=== PATIENT | male | born 1960 | race Caucasian/White ===

== ENCOUNTER 2019-08-03 09:07 | Emergency (ER) | payer OTHER, SELFPAY ==
[2019-08-03 09:16] VITALS: BP 170/100; PULSE 90; RESP 14; TEMP 37.1; O2SAT 98
--- NOTE | 2019-08-03 10:47 | ED.EAR ---
HPI - Ear Problem General Chief complaint: Ear Stated complaint: Pain in ear/ sore neck Time Seen by Provider: 08/03/19 09:08 Source: patient Mode of arrival: Ambulatory Limitations: no limitations History of Present Illness HPI Narrative: 58-year-old male nonsmoker with noncontributory medical history presents to the emergency department with a chief complaint of gradually worsening redness, pain, swelling of his left ear and skin overlying his gnosticist over the past few days. He denies systemic findings such as fever, chills nor nausea or vomiting. He does admit to increasing pain and some muffled sounds from his left ear. He states that sometimes the skin of his scalp becomes irritated with search improves any gets sores that he scratches and he thinks this started from 1 of those about lesions just above his left ear. He denies any injury. He denies swimming or any fluid in his ear but he thinks the redness and pain started in his ear and spread to the gnosticist. He denies any discharge MD Complaint: ear pain and decreased hearing Location: left ear Duration: constant Severity: mild Relieving factors: nothing Exacerbating factors: position of head and palpation Discharge from ear: no Treatment prior to arrival: oral analgesic Related Data Home Medications Medication Instructions Recorded Confirmed acetaminophen #0 07/06/17 diazepam [Valium] #0 07/06/17 gabapentin #0 07/06/17 Previous Rx's Medication Instructions Recorded ciprofloxacin HCl [Cipro] 500 mg PO BID #14 tab 08/03/19 ketorolac 10 mg PO Q6H PRN #14 tab 08/03/19 Allergies Allergy/AdvReac Type Severity Reaction Status Date / Time Penicillins [PENICILLINS] Allergy Unknown ANAPHYLAXIS Unverified 02/21/18 13:09 CHILD codeine [CODEINE] AdvReac Mild N/V Unverified 02/21/18 13:09 hydrocodone [HYDROCODONE] AdvReac Mild N/V Unverified 02/21/18 13:09 Review of Systems Constitutional Constitutional: Denies chills, Denies fatigue, Denies fever(s), Denies frequent falls, Denies lethargy and Denies weakness Eyes Eyes: Denies change in vision, Denies eye discharge, Denies irritation and Denies loss of vision ENT Ears, Nose, Mouth, and Throat: Denies change in voice, Denies dizziness, Reports otalgia, Reports facial pain, Denies neck pain, Denies sore throat and Denies throat swelling Cardiovascular Cardiovascular: Denies chest pain, Denies irregular heart rhythm, Denies lightheadedness, Denies palpitations, Denies dyspnea, Denies dyspnea on exertion and Denies orthopnea Respiratory Respiratory: Denies cough, Denies dyspnea, Denies dyspnea on exertion and Denies wheezing Gastrointestinal Gastrointestinal: Denies abdominal pain, Denies change in bowel habits, Denies diarrhea, Denies nausea and Denies vomiting Genitourinary Genitourinary: Denies hematuria, Denies flank pain, Denies urinary incontinence and Denies urinary urgency Musculoskeletal Musculoskeletal: Denies back pain, Denies muscle weakness, Denies neck pain, Denies numbness and Denies tingling Integumentary/Breasts Skin/Breast: Denies pruritus, Denies erythema, Denies rash and Denies wounds Neurologic Neurologic: Denies behavioral changes, Denies confusion, Denies dizziness, Denies frequent falls, Denies loss of vision, Denies numbness, Denies tingling and Denies weakness Psychiatric Psychiatric: Denies anxiety, Denies behavioral changes, Denies confusion, Denies depression, Denies homicidal ideation and Denies suicidal ideation Endocrine Endocrine: Denies fatigue, Denies flushing and Denies palpitations Hematologic/Lymphatic Hematologic/Lymphatic: Denies easy bruising Allergic/Immunologic Allergic/Immunologic: Denies urticaria, Denies throat swelling and Denies wheezing [facility] Social History (Updated 08/03/19 @ 10:47 by Johnnie Cam DO) Smoking Status: Never smoker Social History Smoking Status: Never smoker Exam Narrative Exam Narrative: GEN: AOx3 and in mild distress, rubbing his left gnosticist EYES: Pupils are equal, round, and reactive to light and accommodation. Extraoccular muscles are intact bilaterally. There is no subconjunctival hemorrhage or exudate. ENT: Mild swelling of Left external auditory canal, no drainage or exudate. TM clear, with normal cone of light and landmarks. No effusion. There is minimal erythema to pinna, but no swelling. No tenderness or bogginess of mastoid. Erythema, warmth and tenderness spreads anterior of ear almost to gnosticist. No induration, fluctuance, or drainage. CHEST: Lungs are clear to auscultation bilaterally and free of wheezes, rales, or rhonchi. Heart rate is regular rhythm, there are no murmurs, clicks, rubs, or gallops. There is no chest wall tenderness. ABD: Abdomen is soft and nontender. There is no guarding or rebound. Bowel sounds are normal in all 4 quadrants. There is no mass or organomegaly. EXT: Full painless ROM of all extremities with no loss of sensation or strength. SKIN: Warm, pink, and dry. No erythema or rash other than that which is noted above in the ENT section Initial Vital Signs Initial Vital Signs: Vital Signs Temperature 98.7 F 08/03/19 09:16 Pulse Rate 90 08/03/19 09:16 Respiratory Rate 14 08/03/19 09:16 Blood Pressure 170/100 H 08/03/19 09:16 Pulse Oximetry 98 08/03/19 09:16 Course Vital Signs Vital signs: Vital Signs - 8 hr 08/03/19 09:16 Temperature 98.7 F Pulse Rate 90 Respiratory Rate 14 Blood Pressure 170/100 H Pulse Oximetry 98 Medical Decision Making MDM Narrative Medical decision making narrative: Multiple etiologies for patient's symptoms considered including: [Otitis externa versus cellulitis versus mastoiditis versus other] Patient's symptoms improved or duration of stay with above-stated therapies. Findings and discharge diagnosis discussed with patient/family followed by verbalization of understanding Return precautions discussed with patient/family whom verbalize understanding. Discharge Plan Departure Patient Disposition: Home Clinical Impression: Otitis externa Qualifiers: Otitis externa type: diffuse Chronicity: acute Laterality: left Qualified Code(s): H60.312 - Diffuse otitis externa, left ear Discharge Date/Time: 08/03/19 09:43 Instructions: DI for Cellulitis -- Adult, DI for Otitis Externa Activity Restrictions/Additional Instructions: *You have been diagnosed with [acute otitis externa with cellulitis] *What to do: *Take medications as directed: Your prescriptions have been electronically transmitted to [facility] at your request *Follow up with your primary care provider in 2-3 days, call for an appointment. Let them know you were seen in the Emergency Department and that we ask that you be seen in follow up *Return to ER if you should have any new, worsening or concerning symptoms, such as [worsening pain, redness, swelling, fever or other bothersome symptoms ] Prescriptions: New ketorolac 10 mg tablet 10 mg PO Q6H PRN (Reason: pain) Qty: 14 RF: 0 ciprofloxacin HCl [Cipro] 500 mg tablet 500 mg PO BID Qty: 14 RF: 0 No Action gabapentin 100 MG capsule Qty: 0 RF: 0 acetaminophen 325 MG tablet Qty: 0 RF: 0 diazepam [Valium] 2 MG tablet Qty: 0 RF: 0
== END 2019-08-03 09:43 | disposition home or self-care (01) ==
LOC: ED 09:29
PROVIDERS: Emergency Provider Emergency Medicine
DX: H60.312 Diffuse otitis externa, left ear (principal)
CPT/HCPCS: 99282

== ENCOUNTER → 2022-06-06 08:51 | Outpatient (CLI) | payer OTHER, SELFPAY ==
[2022-06-06 11:13] LABS: COVID19 -Nasal RAPID Negative (Negative)
== END ==
PROVIDERS: Visit Provider Surgery
DX: Z20.822 Contact with and (suspected) exposure to COVID-19 (principal); Z01.812 Encounter for preprocedural laboratory examination
CPT/HCPCS: 87635; C9803

== ENCOUNTER 2022-06-07 09:03 | Day surgery (SDC) | payer OTHER, SELFPAY ==
[2022-06-07 09:21] VITALS: BP 192/94; PULSE 78; RESP 22; TEMP 36.9; O2SAT 97; BMI 32.5
--- NOTE | 2022-06-07 09:38 | PM.HP.1 ---
History of Present Illness History of Present Illness Date Patient Seen: 06/07/22 Time Patient Seen: 09:38 Chief complaint: SDC Narrative: The patient presents for colorectal screening. Previous colonoscopy 2011 normal. No personal history colon cancer. Family history is unknown adopted.. On further history denies any recent gastrointestinal symptoms. No nausea, vomiting, abdominal pain, loss of appetite, unexplained weight loss, change in bowel habits, diarrhea, constipation, melena, hematochezia, or bright red blood per rectum. Patient History Family & Social History Tobacco & Substance use: Smoking Status Never smoker Meds Home Medications and Allergies Home Medications Medication Instructions Recorded Confirmed Type sodium,potassium,mag sulfates 17.5 See Rx Instructions PO .COMPLEX 05/31/22 06/07/22 Rx gram-3.13 gram-1.6 gram oral soln #354 mL (Suprep Bowel Prep Kit) omeprazole 20 mg capsule,delayed 1 cap PO PRN PRN Reflux 06/06/22 06/07/22 History release Allergies Allergy/AdvReac Type Severity Reaction Status Date / Time Penicillins [PENICILLINS] Allergy Unknown ANAPHYLAXIS Unverified 02/21/18 13:09 CHILD codeine [CODEINE] AdvReac Mild N/V Unverified 02/21/18 13:09 hydrocodone [HYDROCODONE] AdvReac Mild N/V Unverified 02/21/18 13:09 Exam Narrative Exam Narrative: General adult male alert oriented no acute distress Chest nonlabored respirations Abdomen soft nontender nondistended Assessment & Plan Assessment & Plan narrative: The patient requires colorectal screening and colonoscopy is recommended. Technical details were discussed. Risks, benefits, alternatives explained. Risks including but not limited to myocardial infarction, aspiration, bleeding, pain, missed lesion, incomplete examination, need for further radiographic studies, colonic perforation, and need for major abdominal surgery were discussed. All questions were answered to their satisfaction, and they are in agreement with this plan. Time Spent With Patient Critical Care time: I spent a total of [] minutes of critical care time on this patient's care today; this time is exclusive of procedural time.
[2022-06-07] MEDS: LACTATED RINGERS 1,000 ML 200 ML IV (09:40)
--- NOTE | 2022-06-07 09:40 | PM.OP.COLON ---
Operative Date/Time/Diagnoses Date of procedure: 06/07/22 Time of procedure: 09:40 Pre-op diagnosis: Screening colonoscopy Post-op diagnosis: same Procedure & Clinicians Study performed: Colonoscopy Same procedure as scheduled: Yes Indications: Screening colonoscopy Surgeon: Kwan Bazzi Procedure Notes Procedure in detail: Medications: Conscious sedation using *mg IV midazolam and *mcg IV of fentanyl The history and physical was performed/updated and the patient is ASA class is *. The procedure was discussed in detail with the patient. Potential risks complications including infection, bleeding, missed diagnosis, perforation, need for surgery, and were explained. Their questions were answered and informed consent was obtained. Patient was brought to the procedure room and placed standard monitoring equipment. The patient's vital signs were monitored continuously throughout the entire procedure. Prior to starting time-out was performed. The patient was placed in the left lateral recumbent position. Procedural sedation was administered. Examination began with a thorough inspection of the perianal area there was no evidence of fissures, fistulae, external hemorrhoids or cutaneous malignancy. The colonoscopy scope was then placed into the anal canal and was advanced to the cecum, which was identified by the ileocecal valve, the appendiceal orifice and the confluence of the taenia. The scope was then slowly withdrawn examining colon thoroughly in all directions, irrigating it of any residual stool. FINDINGS 1. No masses or polyps 2. Sigmoid colon-mild diverticulosis 3. Internal hemorrhoids The patient tolerated the procedure well. They will be discharged once criteria are met. The prep was of good/excellent quality. The withdrawl time was 9 minutes. The sedation time was 15 minutes. Specimen(s): none sent Complications: none Impression: Normal colonoscopy Post-procedure Recommendations: Colonoscopy in 10 years and High fiber diet Disposition: same day surgery
[2022-06-07] MEDS: ONDANSETRON 4 MG/2 ML INJ IV (09:46)
[2022-06-07] MEDS: MIDAZOLAM 5 MG/5 ML VIAL 6 MG IV (09:55)
[2022-06-07] MEDS: fentaNYL 250 MCG/5 ML INJ 150 MCG IV (09:55)
[2022-06-07 10:10] VITALS: BP 152/76; PULSE 77; RESP 19; TEMP 37.2; O2SAT 94
[2022-06-07 10:15] VITALS: BP 138/85; PULSE 89; RESP 14; O2SAT 95
[2022-06-07 10:20] VITALS: BP 142/83; PULSE 74; RESP 16; O2SAT 95
[2022-06-07 10:27] VITALS: BP 144/80; PULSE 68; RESP 16; O2SAT 96
--- NOTE | 2022-06-07 10:30 | SUR.PHASEII ---
Handoff to SALMA Chavis for phase 2 nursing.
--- NOTE | 2022-06-07 10:51 | SUR.PHASEII ---
Addendum entered by Risa Woods R.N. 06/07/22 10:55: denies nausea. tolerating water. glass to go given to patient . Original Note: 06/07/22 1030-- assumed care of patient . per report from [facility], patient ready to discharge-vital signs up to date, given copies to patient. iv saline lock removed. ride called while patient dressings. 1038-assisted with shoes tying. patient encouraged to go slow in moving to prevent dizziness. 1040-to car by w/chair with Rn (Luis). patient wearing glasses, has all belongings and has instruction envelope in hand.
== END 2022-06-07 10:40 | disposition home or self-care (01) ==
PROVIDERS: Referring Provider Surgery; Visit Provider Surgery
PROC: 0DJD8ZZ Inspection of Lower Intestinal Tract, Via Natural or Artificial Opening Endoscopic (ICD-10-PCS; CPT 45378; principal; 2022-06-07 10:15)
DX: Z12.11 Encounter for screening for malignant neoplasm of colon (principal); K57.30 Diverticulosis of large intestine without perforation or abscess without bleeding; K64.8 Other hemorrhoids
CPT/HCPCS: 45378; 99152; J2250; J2405; J3010

== ENCOUNTER 2022-07-25 18:23 | Emergency (ER) | payer OTHER, SELFPAY ==
[2022-07-25 18:46] VITALS: BP 142/92; PULSE 83; RESP 22; TEMP 37; O2SAT 98; BMI 32.2
--- NOTE | 2022-07-25 18:54 | DI.RAD.S_ITS ---
PROCEDURE: XR LUMBAR SPINE 2-3V INDICATIONS: fall from truck bed TECHNIQUE: Three views of the lumbar spine were acquired. COMPARISON: None. FINDINGS: Bones: Five [id number] vertebrae are present. There is slight scalloping of the L1 superior endplate but no definite fracture. There are mild endplate degenerative changes in the lumbar spine. Normal vertebral body alignment and disc spacing. No suspicious bony lesions. Bilateral hip arthroplasty changes partially seen. Soft tissues: Overlying bowel gas pattern is normal. No suspicious soft tissue calcifications. IMPRESSION: 1. No acute lumbar spine fracture. Dictated by: Angeles Powell M.D. on 07/25/2022 at 19:56 Approved by: Angeles Powell M.D. on 07/25/2022 at 19:57
[2022-07-25] MEDS: KETOROLAC 30 MG/ML VIAL IM (18:58)
--- NOTE | 2022-07-25 21:37 | ED_ITS ---
HPI - Back Pain/Injury General Chief Complaint: Back Pain/Injury Stated Complaint: Fell of pickup and landed on back/butt Time Seen by Provider: 07/25/22 21:27 Source: patient Mode of arrival: Wheelchair History of Present Illness HPI Narrative: Patient is a 61-year-old male who is here for evaluation of injuries he sustained to his mid to lower back when he fell on the back of a pickup truck. He states he was trying to unload items from the back of the pickup. He is unsure exactly what happened but he thinks he stepped wrong and fell onto the back of the truck. Approximately 4 ft. Unsure if he landed on his bottom and then hit his back or landed directly on his back. He did not hit his head. No loss of consciousness. Has been ambulatory since the event but has had fairly significant lower back pain. He did sit in a chair at home for a period of time when his symptoms started to worsen. He has no hip pain. No lower extremity pain. No upper extremity pain. Related Data Home Medications Medication Instructions Recorded Confirmed omeprazole 20 mg capsule,delayed 1 cap PO PRN PRN Reflux 06/06/22 06/07/22 release Previous Rx's Medication Instructions Recorded hydromorphone 2 mg tablet 2 mg PO Q6H PRN pain #10 tabs 07/26/22 (Dilaudid) ondansetron 4 mg disintegrating 4 mg PO Q6H PRN nausea and 07/26/22 tablet vomiting #10 tabs Allergies Allergy/AdvReac Type Severity Reaction Status Date / Time Penicillins [PENICILLINS] Allergy Unknown ANAPHYLAXIS Verified 07/25/22 18:46 CHILD codeine [CODEINE] AdvReac Mild N/V Verified 07/25/22 18:46 hydrocodone [HYDROCODONE] AdvReac Mild N/V Verified 07/25/22 18:46 Review of Systems Review of Systems ROS Unobtainable: All systems reviewed & are unremarkable except as noted in HPI and below Patient History Social History household members: spouse Smoking Status: Never smoker Smoking Status: Never smoker alcohol intake frequency: a few times a month Substance Use Type: does not use Exam Initial Vital Signs Initial Vital Signs: Vital Signs Temperature 98.6 F 07/25/22 18:46 Pulse Rate 83 07/25/22 18:46 Respiratory Rate 22 07/25/22 18:46 Blood Pressure 142/92 H 07/25/22 18:46 Pulse Oximetry 98 07/25/22 18:46 Oxygen Delivery Method 07/25/22 18:46 Const General: cooperative and No ill appearing HENMT Head: normal to inspection and normocephalic Resp Effort & Inspection: normal respiratory effort Auscultation: clear to auscultation bilaterally Cardio Rate: regular rate Rhythm: regular rhythm GI Inspection: normal to inspection Back/Spine/Pelvis Cervical Spine: No cervical muscular tenderness and No cervical spinal tenderness Thoracic/Lumbar Spine: pain with thoraco-lumbar ROM, paraspinal tenderness and lumbar spinal tenderness Skin Other: Bruising noted midline over the upper lumbar region where he has significant discomfort. Neuro General: patient alert, patient awake, patient oriented x3 and moves all extremities Speech: speech normal Sensory Exam: no sensory deficits noted Extrem General: normal to inspection and capillary refill normal Other: No gross deformities noted. Does move all 4 extremities. Psych Appearance: grossly normal and well kempt Course Orders Ordered: ED Orders 07/25/22 21:38 CT lumbar spine wo con Stat CT thoracic spine wo con Stat Discontinued Medications Hydromorphone HCl (Hydromorphone 1 Mg Inj) 1 mg IV NOW ONE Stop: 07/25/22 21:38 Last Admin: 07/25/22 22:06 Dose: 1 mg Documented By: ROSAMARIA Ketorolac Tromethamine (Ketorolac 30 Mg/Ml Vial) 30 mg IM NOW ONE Stop: 07/25/22 18:54 Last Admin: 07/25/22 18:58 Dose: 30 mg Documented By: ALIE Ondansetron HCl (Ondansetron 4 Mg Odt) 4 mg SL NOW ONE Stop: 07/25/22 21:38 Last Admin: 07/25/22 22:05 Dose: 4 mg Documented By: ROSAMARIA Vital Signs Vital signs: Vital Signs - 8 hr 07/25/22 22:11 07/25/22 22:12 07/25/22 22:12 Pulse Rate 84 Blood Pressure 197/108 H Pulse Oximetry 99 98 Oxygen Delivery Method Room Air 07/25/22 22:33 07/25/22 23:00 07/25/22 23:30 Pulse Rate 69 66 65 Blood Pressure Pulse Oximetry 99 97 97 Oxygen Delivery Method 07/26/22 00:00 07/26/22 00:11 07/26/22 00:11 Pulse Rate 70 71 Blood Pressure 166/93 H Pulse Oximetry 98 97 Oxygen Delivery Method MDM - Back Pain/Injury Imaging Data Lumbar spine x-ray: Radiologist's Impression: [address] [address] XRay Report Signed Patient: Luis Villagomez MR#: [id number] : 1960 Acct:[id number] Age/Sex: 61 / M Date of Service: 07/25/22 Loc: ED Accession Number: [id number] ?? Procedure: XR lumbar spine 2-3V Ordering Provider: Jules Lyons D.O. PROCEDURE:? XR LUMBAR SPINE 2-3V ? INDICATIONS:? fall from truck bed ? TECHNIQUE:? Three views of the lumbar spine were acquired.? ? COMPARISON:? None. ? FINDINGS:? ? Bones:? Five hml-coy-vwdfrgn vertebrae are present.? There is slight scalloping of the L1 superior endplate but no definite fracture.? There are mild endplate degenerative changes in the lumbar spine.? Normal vertebral body alignment and disc spacing.? No doni picious bony lesions.? Bilateral hip arthroplasty changes partially seen.? ? Soft tissues:? Overlying bowel gas pattern is normal.? No suspicious soft tissue calcifications.? ? ? IMPRESSION:? ? 1. No acute lumbar spine fracture.? ? ? Dictated by: Angeles Powell M.D. on 07/25/2022 at 19:56 ? ? Approved by: Angeles Powell M.D. on 07/25/2022 at 19:57? Thoracic spine CT: Radiologist's Impression: [address] [address] [address] Scan Report Signed Patient: Luis Villagomez MR#: [id number] : 1960 Acct:[id number] Age/Sex: 61 / M Date of Service: 07/25/22 Loc: ED Accession Number: [id number] ?? Procedure: CT thoracic spine wo con Ordering Provider: Jules Lyons D.O. PROCEDURE:? CT THORACIC SPINE WO CON ? INDICATIONS:? T/L spine midline pain after fall ? TECHNIQUE:? Noncontrast 3 mm thick sections acquired through the region of interest in the thoracic spine.? Sagittal and coronal reformats were then constructed.? For radiation dose reduction, the following was used:? automated exposure control.? ? COMPARISON:? None. ? FINDINGS:? Image quality:? Excellent.? ? Bones:? There is normal overall bony alignment.? No acute vertebral body compression fractures.? No suspicious sclerotic or lytic bony lesions.? Central spinal canal is of normal overall caliber.? ? Soft tissues:? No paravertebral masses or hematomas.? Visualized posteromedial lungs demonstrate mild dependent atelectasis.? No definite pulmonary contusions or lacerations within the visualized lungs.? No definite pneumothorax or pleural effusions. ? IMPRESSION:? ? 1. No evidence of fracture or subluxation in the thoracic spine. ? ? Dictated by: Patrick Patten M.D. on 07/25/2022 at 23:25 ? ? Approved by: Patrick Patten M.D. on 07/25/2022 at 23:32?? Lumbar spine CT: Radiologist's Impression: [place] [address] CT Scan Report Signed Patient: Luis Villagomez MR#: [id number] : 1960 Acct:[id number] Age/Sex: 61 / M Date of Service: 07/25/22 Loc: ED Accession Number: [id number] ?? Procedure: CT lumbar spine wo con Ordering Provider: Jules Lyons D.O. PROCEDURE:? CT LUMBAR SPINE WO CON ? INDICATIONS:? T/L spine midline pain after fall ? TECHNIQUE:? Noncontrast 3 mm thick sections acquired from the T12 level to the sacrum.? Sagittal and coronal reformats were constructed.? For radiation dose reduction, the following was used:? automated exposure control.? ? COMPARISON:? [facility], CR, XR LUMBAR SPINE 2-3V, 07/25/2022, 19:03.? [facility], CT, CT THORACIC SPINE WO CON, 07/25/2022, 21:56. ? FINDINGS:? Image quality:? There is metallic streak artifact from patient's bilateral hip prostheses.? ? Bones:? There is preserved bony alignment.? No acute vertebral body compression fractures.? There is minimal superior endplate scalloping of the L1 vertebral body.? No suspicious lytic or blastic bony lesions.? No pars defects.? There is mild facet arthropathy in the lower lumbar spine.? ? Soft tissues:? No retroperitoneal masses or hematomas.? Visualized aorta is normal in caliber.? There are multiple small clustered nonobstructing stones within the kidneys bilaterally, right greater than left.? No hydronephrosis. ? ? IMPRESSION:? ? 1. No acute fracture or subluxation. ? 2. Bilateral nephrolithiasis without evidence of hydronephrosis. ? ? Dictated by: Patrick Patten M.D. on 07/25/2022 at 23:32 ? ? Approved by: Patrick Patten M.D. on 07/25/2022 at 23:38? MDM Narrative Medical decision making narrative: The lumbar spine x-ray was negative however he did have fairly significant midline discomfort to palpation at the thoracolumbar junction with bruising over the area. The subsequent CT scans did not show any compression fractures. This was ordered given the mechanism of his injury as he very well could have had compression fractures or other fractures. He reports no extremity injuries. Patient has had significant nausea in the past with opioid pain medication however he did tolerate the Dilaudid and Zofran without issue. He reported significant improvement of his discomfort with this. Sent home with symptom treatment. He was given strict return precautions. He expressed understanding and agreement. Discharge Plan Departure Patient Disposition: Home Clinical Impression: Lumbar contusion Instructions: DI for Low Back Pain Activity Restrictions/Additional Instructions: The CT scans in the x-rays do not show any fractures. Your activities are only limited by your discomfort. Contact your primary doctor for follow-up. Return to the emergency department for any new or worsening symptoms. Prescriptions: New ondansetron 4 mg tablet,disintegrating 4 mg PO Q6H PRN (Reason: nausea and vomiting) Qty: 10 0RF hydromorphone [Dilaudid] 2 mg tablet 2 mg PO Q6H PRN (Reason: pain) Qty: 10 0RF No Action omeprazole 20 mg capsule,delayed release(DR/EC) 1 cap PO PRN PRN (Reason: Reflux) Referrals: ProviderMaribeth [Primary Care Provider] - Visit Report Forms: Patient Portal/API
--- NOTE | 2022-07-25 21:38 | DI.CT.S_ITS ---
PROCEDURE: CT THORACIC SPINE WO CON INDICATIONS: T/L spine midline pain after fall TECHNIQUE: Noncontrast 3 mm thick sections acquired through the region of interest in the thoracic spine. Sagittal and coronal reformats were then constructed. For radiation dose reduction, the following was used: automated exposure control. COMPARISON: None. FINDINGS: Image quality: Excellent. Bones: There is normal overall bony alignment. No acute vertebral body compression fractures. No suspicious sclerotic or lytic bony lesions. Central spinal canal is of normal overall caliber. Soft tissues: No paravertebral masses or hematomas. Visualized posteromedial lungs demonstrate mild dependent atelectasis. No definite pulmonary contusions or lacerations within the visualized lungs. No definite pneumothorax or pleural effusions. IMPRESSION: 1. No evidence of fracture or subluxation in the thoracic spine. Dictated by: Patrick Patten M.D. on 07/25/2022 at 23:25 Approved by: Patrick Patten M.D. on 07/25/2022 at 23:32
--- NOTE | 2022-07-25 21:38 | DI.CT.S_ITS ---
PROCEDURE: CT LUMBAR SPINE WO CON INDICATIONS: T/L spine midline pain after fall TECHNIQUE: Noncontrast 3 mm thick sections acquired from the T12 level to the sacrum. Sagittal and coronal reformats were constructed. For radiation dose reduction, the following was used: automated exposure control. COMPARISON: [facility], CR, XR LUMBAR SPINE 2-3V, 07/25/2022, 19:03. [facility], CT, CT THORACIC SPINE WO CON, 07/25/2022, 21:56. FINDINGS: Image quality: There is metallic streak artifact from patient's bilateral hip prostheses. Bones: There is preserved bony alignment. No acute vertebral body compression fractures. There is minimal superior endplate scalloping of the L1 vertebral body. No suspicious lytic or blastic bony lesions. No pars defects. There is mild facet arthropathy in the lower lumbar spine. Soft tissues: No retroperitoneal masses or hematomas. Visualized aorta is normal in caliber. There are multiple small clustered nonobstructing stones within the kidneys bilaterally, right greater than left. No hydronephrosis. IMPRESSION: 1. No acute fracture or subluxation. 2. Bilateral nephrolithiasis without evidence of hydronephrosis. Dictated by: Patrick Patten M.D. on 07/25/2022 at 23:32 Approved by: Patrick Patten M.D. on 07/25/2022 at 23:38
[2022-07-25] MEDS: ONDANSETRON 4 MG ODT SL (22:05)
[2022-07-25] MEDS: HYDROMORPHONE 1 MG INJ IV (22:06)
[2022-07-25 22:11] VITALS: O2SAT 99
[2022-07-25 22:12] VITALS: BP 197/108; PULSE 84; O2SAT 98
[2022-07-25 22:33] VITALS: PULSE 69; O2SAT 99
[2022-07-25 23:00] VITALS: PULSE 66; O2SAT 97
[2022-07-25 23:30] VITALS: PULSE 65; O2SAT 97
[2022-07-26] VITALS: PULSE 70; O2SAT 98
[2022-07-26 00:11] VITALS: BP 166/93; PULSE 71; O2SAT 97
== END 2022-07-26 00:18 | disposition home or self-care (01) ==
PROVIDERS: Emergency Provider Emergency Medicine
DX: S30.0XXA Contusion of lower back and pelvis, initial encounter (principal); W19.XXXA Unspecified fall, initial encounter
CPT/HCPCS: 72100; 72128; 72131; 96372; 96374; 99284; J1170; J1885

== ENCOUNTER 2023-06-29 06:21 | Day surgery (SDC) | payer OTHER, SELFPAY ==
[2023-06-23 10:03] VITALS: BMI 33.4
[2023-06-29] MEDS: ACETAMINOPHEN 325 MG TABLET 975 MG PO (06:37)
[2023-06-29] MEDS: SCOPOLAMINE 1 PATCH TOP (06:38)
[2023-06-29 06:40] VITALS: BP 185/108; PULSE 80; RESP 16; TEMP 36.2; O2SAT 94; BMI 33.4
--- NOTE | 2023-06-29 07:36 | PM.PREOP ---
Pre-operative Note Interval Note History & Physical reviewed/Exam performed by Physician: Yes Changes to H&P: No
[2023-06-29] MEDS: CEFAZOLIN 2 GM/100 ML PREMIX 100 ML IV (08:00)
--- NOTE | 2023-06-29 08:37 | SUR.OPER ---
Beach chair with Gracie/Rancho shoulder positioner. Lower body on padded OR bed. Head in foam padded head cradle, secured with straps. Non-operative arm secured <90 degrees abduction. Pillow under knees. Safety belt at thigh. Cloth tape over blanket over lower legs.
[2023-06-29] MEDS: SODIUM CHLORIDE IRRIG SOLUTION 6,000 ML, EPINEPHrine 2 MG IRR (08:55)
[2023-06-29] MEDS: LIDOCAINE 1% W/EPI 20 ML INJ (09:34)
--- NOTE | 2023-06-29 09:40 | PM.OP.1 ---
Operative Date/Time/Diagnoses Date of procedure: 06/29/23 Time of procedure: 08:00 Pre-op diagnosis: Right rotator cuff tear Post-op diagnosis: same Procedure & Clinicians Procedure: Right shoulder arthroscopic extensive debridement with subacromial decompression and rotator cuff repair Same procedure as scheduled: Yes Indications: Rotator cuff tear Surgeon: Mitchell Gross Dry Heat Cabinet Attendant: Génesis Gutierrez Anesthesia Type: General and Peripheral nerve block Operative Notes Findings: Full-thickness tear of the supraspinatus extending into the infraspinatus. Some articular sided partial tearing to the subscapularis. Partial tearing to the biceps tendons. Degenerative changes throughout the labrum. Significant bursitis in the subacromial and subdeltoid space. Mild arthritic changes to the glenohumeral joint with no sign full-thickness cartilage loss. Impingement lesion space. No sign bodies. Closure Type: primary Applied: implant(s) (Arthrex speed bridge) Procedure in detail: On date of service, Patient was met in the holding area. The operative site was signed and witnessed by the OR staff. The surgeries once again discussed with the patient and any remaining questions they had were answered fully. Patient was taken back to the operating theater and placed on the operating table in a supine position. Great care was taken to ensure that all bony prominences were properly padded. Patient was then placed into the beach chair position. The head and neck were properly positioned and secured. A timeout was performed verifying patient's name, procedure, and the operative site. The upper extremity was then prepped and draped in the normal sterile fashion. Previously, the bony anatomy and portal sites were marked out as well as injected with Marcaine with epinephrine. An 11 blade was used to make an incision in the posterior aspect of the shoulder. The camera was placed, and a diagnostic shoulder scope was performed. Findings listed above. Next under direct visualization, a anterior portal was made. Shaver was brought in and extensive debridement of the degenerative changes to the labrum was performed. Shaver was used to debride the partial tearing to the rotator cuff as well as the partial tearing to the biceps tendon.. Some debridement of some degenerative changes of the proximal biceps was performed as well. Next the camera was placed into the subacromial space. A lateral portal was obtained under direct visualization. A combination of the shaver and vapor wand, a debridement of the inflamed tissue as well as inflamed bursa was performed. The lateral gutter was also cleaned out. There was a significant amount of bursitis and synovitis in both the subacromial and subdeltoid space. After this was all cleaned out, This gave us good visualization of the bursal aspect of the rotator cuff as well as the acromial arch. There was an obvious impingement lesion in the acromial arch. Next we turned our attention to the subacromial decompression. Next, a mechanical rasp was then used to do a subacromial decompression. This allowed us to convert the acromion to a type I acromial. This also allowed us to shave down the bony lesion in the acromial space. The rasp was placed into the lateral portal as well as the anterior portal in order to do a complete subacromial decompression. We next turned our attention to the distal clavicle. Using the shaver in the vapor wand we were able to clean out all the soft tissue around the distal clavicle as well as into the a.c. joint. This gave us good visualization of the arthritic changes to the distal clavicle as well as good of the a.c. joint allowing us to assess our distal clavicle excision. Of the inferior osteophytes coming off the distal clavicle. Using the mechanical rasp in the anterior portal, we were able to remove the inferior osteophytes as well as do a distal clavicle excision. The camera was then placed into the anterior portal which gave us a direct visualization of the a.c. joint allowing us to assess the distal clavicle excision. We then turned our attention to the rotator cuff tear. Patient had a very large tear involving the rotator cuff. The entire supraspinatus and part of the infraspinatus was torn from the greater tuberosity and retracted a few cm. Due to the acute nature of the tear the cuff was still very mobile and had not scarred in at all. We could very easily pull it back to the rotator cuff footprint. Using the bur, the rotator cuff footprint was decorticated down to bleeding bone. Next, 2 medial anchors were placed. One anteriorly 1 posteriorly. Each anchor had 2 strands of fiber tape for a speed bridge repair. The sutures from the posterior anchor were passed through the posterior aspect of the infraspinatus. Then the sutures from the anterior anchor was passed through the anterior aspect of the supraspinatus. When pulling on the sutures we were able to reduce both the supraspinatus and infraspinatus to their respective footprints. Next, a punch was used to make a hole in the bone for the 2 medial anchors. This was done also anteriorly and posteriorly. A single suture from the anterior medial anchor and a single suture from the posterior medial anchor were placed into the anterior lateral anchor allowing us to tenodesis the rotator cuff across the rotator cuff footprint for the supraspinatus. This was then repeated with the remaining suture both anteriorly and posteriorly. And these 2 sutures were placed into the posterior medial anchor and tenodesis posteriorly providing a crisscross pattern providing a secure repair of both the supraspinatus and infraspinatus. Before the row repair most of the humeral head was exposed. After the repair there was good coverage of the entire humeral head and a very secure repair of the rotator cuff. Shoulder was taken through range of motion and there was no sign of any other tearing. No sign of any impingement lesions. Camera and cannulas were removed. Portal sites were closed. Patient's shoulder was cleaned, dried, and dressed. Patient was extubated and taken to the PACU in stable condition. Complications: none Post-operative Condition: stable Disposition: PACU Plan for aftercare: Patient will follow our postoperative protocol for rotator cuff repair
[2023-06-29] MEDS: BUPIVACAINE 0.5% W/ EPI (PF) 30 ML VIAL INJ (09:41)
[2023-06-29 09:51] VITALS: BP 109/66; PULSE 81; RESP 18; TEMP 36.6; O2SAT 92
[2023-06-29 09:56] VITALS: BP 123/72; PULSE 92; RESP 17; O2SAT 93
[2023-06-29 10:01] VITALS: BP 134/74; PULSE 93; RESP 13; O2SAT 92
[2023-06-29 10:15] VITALS: BP 136/86; PULSE 90; RESP 16; TEMP 36.6; O2SAT 93
== END 2023-06-29 10:52 | disposition home or self-care (01) ==
PROVIDERS: Referring Provider Orthopaedic Surgery; Visit Provider Orthopaedic Surgery
PROC: (CPT 29805; principal; 2023-06-29 07:45)
PROC: (CPT 29827; 2023-06-29 07:45)
DX: S46.011A Strain of muscle(s) and tendon(s) of the rotator cuff of right shoulder, initial encounter (principal); S46.211A Strain of muscle, fascia and tendon of other parts of biceps, right arm, initial encounter; G89.18 Other acute postprocedural pain; M75.51 Bursitis of right shoulder; M65.811 Other synovitis and tenosynovitis, right shoulder; M25.811 Other specified joint disorders, right shoulder; M25.711 Osteophyte, right shoulder; Y93.B1 Activity, exercise machines primarily for muscle strengthening
CPT/HCPCS: 29827; 29826; 29823; 29824; 64415; J0171; J0690; J1100; J2250; J2405; J2704; J3010

== ENCOUNTER 2023-09-20 19:16 | Emergency (ER) | payer MEDICARE, OTHER, SELFPAY ==
[2023-09-20 19:21] VITALS: BP 168/111; PULSE 96; RESP 20; TEMP 37; O2SAT 96; BMI 32.6
[2023-09-20 20:32] VITALS: PULSE 91; O2SAT 97
[2023-09-20 21:00] VITALS: BP 166/92; PULSE 91; O2SAT 97
--- NOTE | 2023-09-20 21:11 | ED_ITS ---
HPI - Male Genitourinary General Chief complaint: Abdominal Pain Stated complaint: incarcerated hernia in groin sent by [facility] Time Seen by Provider: 09/20/23 20:31 Source: patient Mode of arrival: Ambulatory History of Present Illness HPI Narrative: Patient is a 63-year-old male with prior inguinal hernias and repair presenting today with right upper thigh pain between his scrotum and his side. He reports pain and spasming going down his leg. He denies any injury. He denies any fever or chills. He went to the walk-in clinic today concerned might be an incarcerated hernia. He is got no swelling in his groin he said previously when ever he is had his hernias he is had swelling and lumps he does not have any now. He adamantly denies any testicular pain. No fever or chills. Related Data Home Medications Medication Instructions Recorded Confirmed omeprazole 20 mg capsule,delayed 1 cap PO PRN PRN Reflux 06/06/22 06/29/23 release aspirin 81 mg capsule 81 mg PO DAILY 06/23/23 06/29/23 Previous Rx's Medication Instructions Recorded hydromorphone 4 mg tablet 4 mg PO Q4-6H PRN pain #60 tabs 06/29/23 (Dilaudid) hydroxyzine pamoate 25 mg capsule 25 mg PO TID-QID PRN spasms #60 06/29/23 (Vistaril) caps Allergies Allergy/AdvReac Type Severity Reaction Status Date / Time Penicillins [PENICILLINS] Allergy Unknown ANAPHYLAXIS Verified 06/29/23 06:35 CHILD codeine [CODEINE] AdvReac Mild N/V Verified 06/29/23 06:35 hydrocodone [HYDROCODONE] AdvReac Mild N/V Verified 06/29/23 06:35 Review of Systems Review of Systems ROS Unobtainable: All systems reviewed & are unremarkable except as noted in HPI and below Patient History Medical History (Updated 09/20/23 @ 21:37 by Nu Mcdowell DO) Hearing impaired Enlarged prostate Arthritis GERD (gastroesophageal reflux disease) History of DVT (deep vein thrombosis) (2006) HLD (hyperlipidemia) Rupture of right proximal biceps tendon Traumatic tear of right rotator cuff Anesthesia complication DJD (degenerative joint disease) Surgical History (Updated 06/23/23 @ 10:11 by Pina Michael RN) Hx of right inguinal hernia repair (10/01/15) History of total left hip replacement History of total right hip replacement Hx of colonoscopy Hx of right inguinal hernia repair (07/06/17) Social History household members: spouse Smoking Status: Never smoker alcohol intake: current Smoking Status: Never smoker alcohol intake frequency: a few times a month Substance Use Type: does not use Exam Initial Vital Signs Initial Vital Signs: Vital Signs Temperature 98.6 F 09/20/23 19:21 Pulse Rate 96 H 09/20/23 19:21 Respiratory Rate 20 09/20/23 19:21 Blood Pressure 168/111 H 09/20/23 19:21 Pulse Oximetry 96 09/20/23 19:21 Oxygen Delivery Method Room Air 09/20/23 19:21 GENERAL: Well-appearing, well-nourished and in no acute distress. CARDIOVASCULAR: peripheral pulses in tact, cap refill <2 sec RESPIRATORY: No respiratory distress, speaks in full sentences without difficulty ABDOMEN: Soft, nontender, no guarding or rebound : Normal male genitalia right testicle nontender non erythematous not swollen no inguinal hernia appreciated. Possibly mild yeast infection and thigh. No other obvious rashes EXTREMITIES: Normal range of motion, no clubbing or edema. Neurovascularly intact NEUROLOGICAL: Cranial nerves II through XII grossly intact. Normal gait and speech. SKIN: Warm, dry, no petechiae, no rashes or lesions. Course Orders Ordered: ED Orders 09/20/23 21:18 US scrotum Stat Vital Signs Vital signs: Vital Signs - 8 hr 09/20/23 19:21 09/20/23 20:32 09/20/23 21:00 Temperature 98.6 F Pulse Rate 96 H 91 H 91 H Respiratory Rate 20 Blood Pressure 168/111 H Pulse Oximetry 96 97 97 Oxygen Delivery Method Room Air Room Air Room Air 09/20/23 21:00 09/20/23 21:30 09/20/23 21:30 Temperature 97.9 F Pulse Rate 86 Respiratory Rate Blood Pressure 166/92 H 175/94 H Pulse Oximetry 97 Oxygen Delivery Method Room Air MDM - Male Genitourinary Imaging Data US scrotum: Radiologist's Impression: PROCEDURE: US SCROTUM INDICATIONS: RIGHT TESTICULAR PAIN TECHNIQUE: Real-time scanning was performed of the scrotum and testicles, with image documentation. Color and pulse Doppler interrogation was performed of both testicles. COMPARISON: None. FINDINGS: Right: Testicle is normal in size at 5.4 x 2.2 x 3.3 cm, and homogenous in echotexture. Epididymis is normal in overall size and morphology. No hydrocele or varicoceles. Overlying scrotal skin is normal in thickness. Left: Testicle is normal in size at 5.0 x 2.7 x 3.5 cm, and homogeneous in echotexture. Epididymis is normal in overall size and morphology. No hydrocele or varicoceles. Overlying scrotal skin is normal in thickness. Doppler: Color and pulse Doppler demonstrate normal and symmetric arterial flow in both testicles. IMPRESSION: No testicular torsion. Unremarkable ultrasound examination of scrotum. Dictated by: Manuel Lee M.D. on 09/20/2023 at 2 MDM Narrative Medical decision making narrative: Patient well-appearing 63-year-old male with prior history of multiple inguinal hernias and repair presenting today with right leg pain. Walk-in clinic apparently was concern for hernia. On my exam there is no obvious hernia he has no testicular pain. Really complaining of medial thigh pain which like spasm and groin strain although he does not really remember an injury. Recommended supportive care only. And over the counter fungal medication. I see no need for blood work imaging or other workup. Patient feels comfortable he is offered pain medication but declines does not want any. He just wanted to make sure he did not have a hernia. Discharge Plan Departure Patient Disposition: Home Clinical Impression: Groin strain Instructions: Groin Strain, DI for Jock Itch Activity Restrictions/Additional Instructions: *You have been diagnosed with probable groin strain *What to do: At this time there is no evidence of any sort of hernia or testicular infection. I do think it is most likely a pulled or strained muscle. You can try Tylenol ibuprofen if needed. If you feel like you need [id number]-[id number] antifungal medication you can try that as well but it does not look too bad. *Continue to take medications as directed *Follow up with your primary care provider in 2-3 days or call [phone] *Return to ER if you should have increasing pain weakness numbness tingling or any new, worsening or concerning symptoms Prescriptions: No Action omeprazole 20 mg capsule,delayed release(DR/EC) 1 cap PO PRN PRN (Reason: Reflux) aspirin 81 mg Capsule 81 mg PO DAILY hydroxyzine pamoate [Vistaril] 25 mg capsule 25 mg PO TID-QID PRN (Reason: spasms) Qty: 60 0RF hydromorphone [Dilaudid] 4 mg tablet 4 mg PO Q4-6H PRN (Reason: pain) Qty: 60 0RF Referrals: ProviderMaribeth [Primary Care Provider] - Stand Alone Forms: Patient Portal/API
--- NOTE | 2023-09-20 21:18 | DI.US.S_ITS ---
PROCEDURE: US SCROTUM INDICATIONS: RIGHT TESTICULAR PAIN TECHNIQUE: Real-time scanning was performed of the scrotum and testicles, with image documentation. Color and pulse Doppler interrogation was performed of both testicles. COMPARISON: None. FINDINGS: Right: Testicle is normal in size at 5.4 x 2.2 x 3.3 cm, and homogenous in echotexture. Epididymis is normal in overall size and morphology. No hydrocele or varicoceles. Overlying scrotal skin is normal in thickness. Left: Testicle is normal in size at 5.0 x 2.7 x 3.5 cm, and homogeneous in echotexture. Epididymis is normal in overall size and morphology. No hydrocele or varicoceles. Overlying scrotal skin is normal in thickness. Doppler: Color and pulse Doppler demonstrate normal and symmetric arterial flow in both testicles. IMPRESSION: No testicular torsion. Unremarkable ultrasound examination of scrotum. Dictated by: Manuel Lee M.D. on 09/20/2023 at 21:49 Approved by: Manuel Lee M.D. on 09/20/2023 at 21:50
[2023-09-20 21:30] VITALS: BP 175/94; PULSE 86; TEMP 36.6; O2SAT 97
== END 2023-09-20 21:45 | disposition home or self-care (01) ==
PROVIDERS: Emergency Provider Emergency Medicine
DX: S39.011A Strain of muscle, fascia and tendon of abdomen, initial encounter (principal); X58.XXXA Exposure to other specified factors, initial encounter
CPT/HCPCS: 76870; 93975; 99283

== ENCOUNTER 2023-10-25 03:09 | Emergency (ER) | payer MEDICARE, OTHER, SELFPAY ==
[2023-10-25 03:15] VITALS: BP 139/116; PULSE 80; RESP 18; TEMP 36.5; O2SAT 98; BMI 32.6
--- NOTE | 2023-10-25 03:16 | DI.CT.S_ITS ---
PROCEDURE: CT KIDNEY URETER BLADDER (KUB) INDICATIONS: L sided flank pain eval for stone TECHNIQUE: Axial sections were acquired from the lung bases to the pubic symphysis. Coronal and sagittal reformats were performed. For radiation dose reduction, the following was used: automated exposure control, adjustment of mA and/or kV according to patient size. COMPARISON: None. FINDINGS: Image quality: Excellent. Lung bases: Unremarkable. Heart: No significant findings. URINARY: Right Kidney: There are multiple small nonobstructing stones, 2 of which measure 4 mm. A lower pole 4 mm stone has a Hounsfield measurement of 557. A middle pole 4 mm stone has a Hounsfield measurement of 515. Right Ureter: No hydroureter. Left Kidney: No stones. Mild hydronephrosis. There is a 6.6 cm exophytic cyst. Left Ureter: A 2 mm stone obstructs the left ureter at the level of the left ureterovesical junction, resulting in mild left hydronephrosis. Bladder: Normal wall thickness. No stones. ABDOMEN: Liver: No contour-deforming solid mass. Gallbladder: No radiopaque gallstones or wall thickening. Biliary ducts: No biliary dilation. Pancreas: No ductal dilation. Spleen: Size is within normal limits. Adrenal Glands: No adrenal nodules. Stomach and Bowel: Normal colonic caliber, without significant wall thickening. Mild diverticulosis without evidence of diverticulitis. Peritoneum: No abnormal intraperitoneal fluid. No free air. Ventral Wall: No hernia. Abdominal Nodes: No enlarged retroperitoneal or mesenteric lymph nodes. Vessels: Aorta and inferior vena cava are normal in size. PELVIS: Pelvic Organs: Unremarkable. Pelvic Nodes: Unremarkable. Miscellaneous: Bilateral fat containing inguinal hernias. Bones: Bilateral hip arthroplasties result in extensive lower pelvic metal artifact. There are mild old compressions of T12 and L1. IMPRESSION: 1. A 2 mm stone obstructs the left ureter at the level of the ureterovesical junction, resulting in mild left hydronephrosis. 2. Multiple nonobstructing small right renal stones. Hounsfield measurements of the 2 largest stones, each of which measures 4 mm in diameter, as described above. Comment: Final report is concordant with preliminary interpretation provided by [facility]. Dictated by: Kolby Shea M.D. on 10/25/2023 at 7:48 Approved by: Kolby Shea M.D. on 10/25/2023 at 7:55
--- NOTE | 2023-10-25 03:21 | ED_ITS ---
HPI - Back Pain/Injury General Chief Complaint: Back Pain/Injury Stated Complaint: BACK PAIN Time Seen by Provider: 10/25/23 03:13 Source: patient Mode of arrival: Ambulatory History of Present Illness HPI Narrative: Patient is a 63-year-old male here for evaluation of left-sided flank/abdominal discomfort. He states he was woken from sleep approximately 1.5 hours ago with the discomfort. He states that he went and urinated in the pain got worse. He is also had a bowel movement and the pain has continued to worsen. No fevers. Does hurt to touch and move. He could not find a comfortable position. Has been nauseous but no vomiting. No history of kidney stones. Has not tried anything for the symptoms prior to arrival. Related Data Home Medications Medication Instructions Recorded Confirmed omeprazole 20 mg capsule,delayed 1 cap PO PRN PRN Reflux 06/06/22 06/29/23 release aspirin 81 mg capsule 81 mg PO DAILY 06/23/23 06/29/23 Previous Rx's Medication Instructions Recorded hydromorphone 4 mg tablet 4 mg PO Q4-6H PRN pain #60 tabs 06/29/23 (Dilaudid) hydroxyzine pamoate 25 mg capsule 25 mg PO TID-QID PRN spasms #60 06/29/23 (Vistaril) caps Allergies Allergy/AdvReac Type Severity Reaction Status Date / Time Penicillins [PENICILLINS] Allergy Unknown ANAPHYLAXIS Verified 06/29/23 06:35 CHILD codeine [CODEINE] AdvReac Mild N/V Verified 06/29/23 06:35 hydrocodone [HYDROCODONE] AdvReac Mild N/V Verified 06/29/23 06:35 Review of Systems Constitutional Constitutional: Reports system reviewed and no additional complaints, except as documented Gastrointestinal Gastrointestinal: Reports system reviewed and no additional complaints, except as documented Genitourinary Genitourinary: Reports system reviewed and no additional complaints, except as documented Musculoskeletal Musculoskeletal: Reports system reviewed and no additional complaints, except as documented Integumentary/Breasts Skin/Breast: Reports system reviewed and no additional complaints, except as documented Patient History Medical History Hearing impaired Enlarged prostate Arthritis GERD (gastroesophageal reflux disease) History of DVT (deep vein thrombosis) (2006) HLD (hyperlipidemia) Rupture of right proximal biceps tendon Traumatic tear of right rotator cuff Anesthesia complication DJD (degenerative joint disease) Surgical History (Updated 06/23/23 @ 10:11 by Pina Michael RN) Hx of right inguinal hernia repair (10/01/15) History of total left hip replacement History of total right hip replacement Hx of colonoscopy Hx of right inguinal hernia repair (07/06/17) Social History household members: spouse Smoking Status: Never smoker alcohol intake: current Smoking Status: Never smoker alcohol intake frequency: a few times a month Substance Use Type: does not use Exam Initial Vital Signs Initial Vital Signs: Vital Signs Temperature 97.7 F 10/25/23 03:15 Pulse Rate 80 10/25/23 03:15 Respiratory Rate 18 10/25/23 03:15 Blood Pressure 139/116 H 10/25/23 03:15 Pulse Oximetry 98 10/25/23 03:15 Oxygen Delivery Method Room Air 10/25/23 03:15 Const General: cooperative, comfortable and No ill appearing HENMT Head: normal to inspection and normocephalic Resp Effort & Inspection: normal respiratory effort Cardio Rate: regular rate Back/Spine/Pelvis Back: CVA tenderness left Skin General: no rashes or lesions noted Neuro General: patient alert and patient awake Course Orders Ordered: ED Orders 10/25/23 03:15 Basic Metabolic Panel Stat Complete Blood Count AUTO DIFF Stat 10/25/23 03:16 CT kidney ureter bladder (KUB) Stat 10/25/23 04:05 Ictotest Urine Stat Urine Culture Stat Urine Microscopic Stat Discontinued Medications Hydromorphone HCl (Hydromorphone 1 Mg Inj) 1 mg IV NOW ONE Stop: 10/25/23 03:34 Last Admin: 10/25/23 03:36 Dose: 1 mg Documented By: AP Ketorolac Tromethamine (Ketorolac 30 Mg/Ml Vial) 30 mg IV NOW ONE Stop: 10/25/23 03:17 Last Admin: 10/25/23 03:22 Dose: 30 mg Documented By: AP Ondansetron HCl (Ondansetron 4 Mg/2 Ml Inj) 4 mg IV NOW ONE Stop: 10/25/23 03:17 Last Admin: 10/25/23 03:22 Dose: 4 mg Documented By: AP Vital Signs Vital signs: Vital Signs - 8 hr 10/25/23 03:15 Temperature 97.7 F Pulse Rate 80 Respiratory Rate 18 Blood Pressure 139/116 H Pulse Oximetry 98 Oxygen Delivery Method Room Air MDM - Back Pain/Injury Lab Data Attestation: I reviewed the patient's lab results. 10/25/23 03:15 10/25/23 03:15 Labs: Lab Results 10/25/23 10/25/23 Range/Units 03:15 04:05 WBC 9.1 (4.5-11.0) X10^3/uL RBC 4.70 (4.5-5.9) X10^6/uL Hgb 14.8 (13.5-17.5) g/dL Hct 43.5 (41-53) % MCV 92.6 (80-100) fL MCH 31.5 (26-34) PG MCHC 34.0 (30-36) % RDW 13.5 (11.6-14.8) % Plt Count 305 (150-400) X10^3/uL Neut % (Auto) 58.4 (50-75) % Lymph % (Auto) 30.1 (25-40) % [place] % (Auto) 7.9 (3-14) % Eos % (Auto) 2.6 (2-4) % Baso % (Auto) 1.0 (0-2) % Neut # (Auto) 5300 (9424-2352) /uL Lymph # (Auto) 2800 (2489-6480) /uL [place] # (Auto) 700 (0-900) /uL Eos # (Auto) 200 (0-450) /uL Baso # (Auto) 100 (0-100) /uL Sodium 137 (137-145) mmol/L Potassium 3.8 (3.4-5.1) mmol/L Chloride 104 (98-107) mmol/L Carbon Dioxide 20 L (22-32) mmol/L BUN 17 (9-20) mg/dL Creatinine 0.80 (0.66-1.25) mg/dL Estimated GFR > 60 (>60) mL/min BUN/Creatinine Ratio 21.3 (6-22) Glucose 154 H (80-110) mg/dL Calcium 9.9 (8.4-10.2) mg/dL Ur Bilirubin Confirm Not Reportable Urine RBC 1-5/hpf (0-5/HPF) Urine WBC None seen (0-5/HPF) Ur Squamous Epith Cells None seen (0-5/HPF) Urine Bacteria None seen (None) Ur Culture Indicated? Cult not indicated Urine Dip Bedside Urine Glucose Negative Bedside Urine Bilirubin + 1 Bedside Urine Ketone +++ 80 Urine Specific [place] 1.025 Bedside Urine Occult Blood +++ Bedside Urine pH 6 Bedside Urine Protein - Negative Bedside Urine Urobilinogen - Negative Bedside Urine Nitrite - Negative Bedside Urine Leukocytes +/- [address] scan - abdomen/pelvis: Radiologist's Impression: Left hydroureter nephrosis secondary to small distal left ureteral stone Nonobstructing right renal stones Simple cyst left kidney MDM Narrative Medical decision making narrative: Urinalysis today has blood but no signs of infection. Kidney functions unremarkable. Patient states that his discomfort has greatly improved/resolved after urinating here in the ER. This was done after the CT scan. CT does show left-sided distal ureteral stone. No fevers. Will discharge patient home with return precautions. He expressed understanding and agreement with plan. Discharge Plan Departure Patient Disposition: Home Clinical Impression: Left ureteral stone Instructions: Kidney Stones -- Adult Activity Restrictions/Additional Instructions: Recommend that you continue to take all of your medications as directed. Contact your primary care doctor for follow-up. Return to the emergency department for new or worsening symptoms. Prescriptions: No Action omeprazole 20 mg capsule,delayed release(DR/EC) 1 cap PO PRN PRN (Reason: Reflux) aspirin 81 mg Capsule 81 mg PO DAILY hydroxyzine pamoate [Vistaril] 25 mg capsule 25 mg PO TID-QID PRN (Reason: spasms) Qty: 60 0RF hydromorphone [Dilaudid] 4 mg tablet 4 mg PO Q4-6H PRN (Reason: pain) Qty: 60 0RF Referrals: Provider,Maribeth CHOPRA [Primary Care Provider] - Stand Alone Forms: Patient Portal/API
[2023-10-25] MEDS: KETOROLAC 30 MG/ML VIAL IV (03:22)
[2023-10-25] MEDS: ONDANSETRON 4 MG/2 ML INJ IV (03:22)
[2023-10-25 03:31] LABS: Add Manual Diff / Slide Review NO; Basophils Absolute Auto 100 /uL (0-100); Eosinophils Absolute Auto 200 /uL (0-450); Eosinophils Percent Auto 2.6 % (2-4); Hematocrit 43.5 % (41-53); Hemoglobin 14.8 g/dL (13.5-17.5); Lymphocytes Absolute Auto 2800 /uL (1100-4500); Lymphocytes Percent Auto 30.1 % (25-40); Mean Corpuscular Hemoglobin 31.5 PG (26-34); Mean Corpuscular Volume 92.6 fL (80-100); Monocytes Absolute Auto 700 /uL (0-900); Monocytes Percent Auto 7.9 % (3-14); Neutrophils Absolute Auto 5300 /uL (1500-7000); Neutrophils Percent Auto 58.4 % (50-75); Platelet Count 305 X10^3/uL (150-400); Red Cell Distribution Width 13.5 % (11.6-14.8); White Blood Cell Count 9.1 X10^3/uL (4.5-11.0)
[2023-10-25 03:35] LABS: BUN Creatinine Ratio 21.3 (6-22); Blood Urea Nitrogen 17 mg/dL (9-20); Calcium 9.9 mg/dL (8.4-10.2); Carbon Dioxide 20 mmol/L (22-32); Chloride 104 mmol/L (98-107); Estimated Glomerular Filt Rate > 60 mL/min (>60); Glucose 154 mg/dL (80-110); HEMOLYSIS < 15 (0-50); Potassium 3.8 mmol/L (3.4-5.1); Sodium 137 mmol/L (137-145)
[2023-10-25] MEDS: HYDROMORPHONE 1 MG INJ IV (03:36)
[2023-10-25 04:00] VITALS: BP 164/78; PULSE 62; RESP 18; O2SAT 94
[2023-10-25 04:29] LABS: Bacteria Urine None Seen; RBC Urine 1-5/HPF (0-5/HPF); Squamous Epithelial Cell Urine None Seen (0-5/HPF); WBC Urine None Seen (0-5/HPF)
[2023-10-25 04:30] VITALS: BP 138/82; PULSE 60; RESP 18; O2SAT 99
[2023-10-25 04:31] LABS: Culture Indicated Urine Cult Not Indicated
[2023-10-25 05:21] VITALS: BP 134/69; PULSE 62; RESP 16; O2SAT 96
== END 2023-10-25 05:26 | disposition home or self-care (01) ==
PROVIDERS: Emergency Provider Emergency Medicine
DX: N20.1 Calculus of ureter (principal)
CPT/HCPCS: 36415; 74176; 80048; 81003; 81015; 85025; 87086; 96374; 96375; 99284; J1170; J1885; J2405

== ENCOUNTER → 2023-12-20 06:55 | Outpatient (CLI) | payer MEDICARE, OTHER, SELFPAY ==
[2023-12-20 08:44] LABS: Alanine Aminotransferase 31 IU/L (<50); Albumin 4.3 g/dL (3.5-5.0); Albumin Globulin Ratio 1.4 (1.0-2.8); Alkaline Phosphatase 47 U/L (38-126); Aspartate Aminotransferase 31 IU/L (17-59); BUN Creatinine Ratio 26.1 (6-22); Bilirubin Total 1.1 mg/dL (0.2-1.3); Blood Urea Nitrogen 18 mg/dL (9-20); Calcium 9.7 mg/dL (8.4-10.2); Carbon Dioxide 24 mmol/L (22-32); Chloride 104 mmol/L (98-107); Cholesterol 262 mg/dL (140-199); Estimated Glomerular Filt Rate > 60 mL/min (>60); Glucose 110 mg/dL (80-110); HDL Cholesterol 45 mg/dL (40-60); HEMOLYSIS < 15 (0-50); LDL Cholesterol Calculated 153 mg/dL (<100); Potassium 4.6 mmol/L (3.4-5.1); Sodium 135 mmol/L (137-145); Total Protein 7.3 g/dL (6.3-8.2); Triglycerides 321 mg/dL (35-150)
== END ==
PROVIDERS: Referring Provider Family Medicine; Visit Provider Family Medicine
DX: R23.8 Other skin changes (principal); Z51.81 Encounter for therapeutic drug level monitoring; E78.5 Hyperlipidemia, unspecified
CPT/HCPCS: 36415; 80053; 80061

== ENCOUNTER → 2024-07-16 08:36 | Outpatient (CLI) | payer MEDICARE, OTHER, SELFPAY ==
--- NOTE | 2024-07-16 08:38 | DI.MRI.S_ITS ---
PROCEDURE: MR SHOULDER RT WO CON INDICATIONS: STRAIN OF MUSCLE AND TENDON OF RT ROTATOR CUFF TECHNIQUE: Noncontrast oblique coronal T2 fast spin echo with fat saturation, oblique sagittal T1 spin echo and T2 fast spin echo with fat saturation, axial T1 spin echo and T2 fast spin echo with fat saturation through the shoulder. COMPARISON: [facility], MR, MR SHOULDER RIGHT WITHOUT CONTRAST, 05/31/2023, 8:01. [facility] [place], CR, XR SHOULDER 2+ VIEWS RIGHT, 07/08/2024, 8:47. FINDINGS: Image quality: Excellent. Rotator cuff: Postsurgical changes are seen from rotator cuff tendon repair. The surgical construct appears to be intact. Teres minor tendon is intact. There is high-grade partial articular sided tearing of the subscapularis tendon at the superior insertion superimposed on chronic tendinosis. There is severe fatty infiltration of the superior portion of the subscapularis muscle. Bones and bursae: Multiple surgical anchors are seen in the femoral head. No acute osseous fracture. Mild partial-thickness cartilage irregularity in the glenohumeral joint. Postsurgical changes are seen in the acromioclavicular joint without recurrent narrowing of the supraspinatus outlet. Small amount of fluid is seen in the subacromial/subdeltoid bursa. Small glenohumeral effusion. Capsule and soft tissues: Nondisplaced tearing of the posterior superior labrum. There is high-grade partial tearing of the proximal biceps tendon superimposed on severe tendinosis. The tendon is perched along the medial aspect of the bicipital groove. There is partial effacement of the fat in the rotator interval. Glenohumeral ligaments are intact. IMPRESSION: 1. Postsurgical changes from rotator cuff tendon repair with an intact surgical construct. 2. High-grade partial articular sided tearing of the subscapularis tendon at the superior insertion. 3. High-grade partial tearing of the proximal biceps long head tendon superimposed on severe tendinosis. 4. Nondisplaced tearing at the posterior superior labrum. 5. Postsurgical changes of the acromioclavicular joint without recurrent narrowing of the supraspinatus outlet. 6. Small subacromial/subdeltoid bursal effusion is expected in the postsurgical setting. Approved by: Silvio Kuhn M.D. on 07/16/2024 at 15:45
== END ==
PROVIDERS: Referring Provider Orthopaedic Surgery; Visit Provider Orthopaedic Surgery
DX: S46.011A Strain of muscle(s) and tendon(s) of the rotator cuff of right shoulder, initial encounter (principal); S46.111A Strain of muscle, fascia and tendon of long head of biceps, right arm, initial encounter; M25.411 Effusion, right shoulder; X58.XXXA Exposure to other specified factors, initial encounter
CPT/HCPCS: 73221

== ENCOUNTER 2024-09-19 08:26 | Emergency (ER) | payer MEDICARE, OTHER, SELFPAY ==
[2024-09-19] VITALS (8 sets, daily range): BP systolic 176–219; BP diastolic 95–114; PULSE 80–88; RESP 17; TEMP 37.1; O2SAT 94–97; BMI 32.1
--- NOTE | 2024-09-19 09:57 | ED_ITS ---
HPI - Headache General Chief Complaint: Headache Stated Complaint: Bad headache , High blood pressure Time Seen by Provider: 09/19/24 09:32 Mode of arrival: Family Vehicle History of Present Illness HPI Narrative: Patient is a 64-year-old male without significant past medical history presenting today with ongoing headache for about 2 weeks. He reports he has been taking Tylenol aspirin in it does go away but it is there every single day. He says today it is not getting any better. He has no numbness tingling or weakness nausea or vomiting. He has no chest pain or shortness of breath. He took Tylenol yesterday did not go away. He has noticed a slight increase in his blood pressure. He has been checking his blood pressure daily at about 150-170 systolic. Currently he has a systolic in the 200s. He says blood pressure is always high when he goes to the doctor. Related Data Home Medications Medication Instructions Recorded Confirmed omeprazole 20 mg capsule,delayed 1 cap PO PRN PRN Reflux 06/06/22 12/25/23 release tamsulosin 0.4 mg capsule 0.4 mg PO BEDTIME 12/25/23 12/25/23 Previous Rx's Medication Instructions Recorded aspirin 81 mg tablet,delayed 81 mg PO DAILY #90 tabs 12/25/23 release (Adult Aspirin Regimen) atorvastatin 10 mg tablet 10 mg PO BEDTIME #90 tabs 12/25/23 omega 0-ohl-wst-fish oil 1,000 mg 2 cap PO DAILY #100 caps 12/25/23 (120 mg-180 mg) capsule (Fish Oil) losartan 25 mg tablet 25 mg PO DAILY #30 tabs 09/19/24 Allergies Allergy/AdvReac Type Severity Reaction Status Date / Time Penicillins [PENICILLINS] Allergy Unknown ANAPHYLAXIS Verified 09/19/24 08:50 CHILD codeine [CODEINE] AdvReac Mild N/V Verified 09/19/24 08:50 hydrocodone [HYDROCODONE] AdvReac Mild N/V Verified 09/19/24 08:50 Patient History Medical History (Updated 09/19/24 @ 11:07 by Nu Mcdowell DO) Wears glasses Shoulder pain, right Foot pain BPH (benign prostatic hyperplasia) Elevated blood pressure reading Nephrolithiasis (~11/2023) Hearing impaired Enlarged prostate Arthritis GERD (gastroesophageal reflux disease) History of DVT (deep vein thrombosis) (2006) HLD (hyperlipidemia) Rupture of right proximal biceps tendon Traumatic tear of right rotator cuff DJD (degenerative joint disease) Surgical History (Updated 12/30/23 @ 19:36 by Grecia De Leon) S/P right rotator cuff repair (~06/2023) Anesthesia complication Hx of right inguinal hernia repair (10/01/15) History of total left hip replacement (~2006) History of total right hip replacement (~2008) Hx of colonoscopy Hx of right inguinal hernia repair (07/06/17) Social History household members: spouse Smoking Status: Never smoker alcohol intake: current Smoking Status: Never smoker alcohol intake frequency: a few times a month Substance Use Type: does not use Exam Initial Vital Signs Initial Vital Signs: Vital Signs Temperature 98.7 F 09/19/24 08:46 Pulse Rate 86 09/19/24 08:46 Respiratory Rate 17 09/19/24 08:46 Blood Pressure 177/99 H 09/19/24 08:46 Pulse Oximetry 96 09/19/24 08:46 Oxygen Delivery Method Room Air 09/19/24 08:46 GENERAL: Alert well-appearing 64-year-old male and in no acute distress. HEENT: Head atraumatic,EOMI, pupils reactive, face symmetric, moist mucous membranes CARDIOVASCULAR: Regular rate and rhythm without murmurs, rubs or gallops. RESPIRATORY: Breath sounds equal bilaterally, no wheezes rales or rhonchi. ABDOMEN: Soft, nontender. Normoactive bowel sounds all 4 quadrants. No guarding or rebound. EXTREMITIES: Normal range of motion, no clubbing or edema. Neurovascularly intact NEUROLOGICAL: Alert and oriented x4.Normal gait and speech. Cranial nerves II through XII grossly intact. Clock And Watch Hands Dipper strength equal bilaterally no facial droop no aphasia or dysarthria SKIN: Warm, dry, no laceration, no petechiae, no rashes or lesions. Scores NIH Stroke Scale Level of Conciousness: Alert, keenly responsive Ask month/age: Answers both questions correctly. Open/close eyes, close hand: Performs both tasks correctly Best gaze horizontal: Normal Visual conte: No visual loss Facial palsy: Normal symetrical movement Left arm drift: No drift for full 10 sec Right arm drift: No drift for full 10 sec Left leg drift: No drift for full 5 sec Right leg drift: No drift for full 5 sec Limb ataxia: Absent Sensory on face/arms/legs: Normal, no sensory loss Best language: No aphasia, normal Dysarthria: Normal Extinction or inattention: No abnormality Total NIH Stroke scale score: 0 Course Orders Ordered: ED Orders 09/19/24 10:03 CT head/brain wo con Stat 09/19/24 10:04 EKG-12 Lead Stat Discontinued Medications Ketorolac Tromethamine (Ketorolac 30 Mg/Ml Vial) 15 mg IV NOW ONE Stop: 09/19/24 10:04 Last Admin: 09/19/24 10:28 Dose: 15 mg Documented By: MARLON Losartan Potassium (Losartan 25 Mg Tablet) 25 mg PO NOW ONE Stop: 09/19/24 11:21 Last Admin: 09/19/24 11:23 Dose: 25 mg Documented By: MARLON Vital Signs Vital signs: Vital Signs - 8 hr 09/19/24 11:23 Pulse Rate 80 Blood Pressure 185/96 H MDM - Headache Lab Data 09/19/24 09:06 09/19/24 09:06 Labs: Lab Results 09/19/24 Range/Units 09:06 WBC 10.0 (4.5-11.0) X10^3/uL RBC 4.95 (4.5-5.9) X10^6/uL Hgb 15.8 (13.5-17.5) g/dL Hct 46.3 (41-53) % MCV 93.5 (80-100) fL MCH 31.9 (26-34) PG MCHC 34.1 (30-36) % RDW 13.3 (11.6-14.8) % Plt Count 301 (150-400) X10^3/uL Neut % (Auto) 72.3 (50-75) % Lymph % (Auto) 17.9 L (25-40) % [place] % (Auto) 7.9 (3-14) % Eos % (Auto) 1.2 L (2-4) % Baso % (Auto) 0.7 (0-2) % Neut # (Auto) 7200 H (7815-9684) /uL Lymph # (Auto) 1800 (0130-0757) /uL [place] # (Auto) 800 (0-900) /uL Eos # (Auto) 100 (0-450) /uL Baso # (Auto) 100 (0-100) /uL Sodium 137 (137-145) mmol/L Potassium 4.2 (3.4-5.1) mmol/L Chloride 105 (98-107) mmol/L Carbon Dioxide 21 L (22-32) mmol/L BUN 11 (9-20) mg/dL Creatinine 0.59 L (0.66-1.25) mg/dL Estimated GFR > 60 (>60) mL/min BUN/Creatinine Ratio 18.6 (6-22) Glucose 111 H (80-110) mg/dL Calcium 9.4 (8.4-10.2) mg/dL Total Bilirubin 1.1 (0.2-1.3) mg/dL AST 38 (17-59) IU/L ALT 35 (<50) IU/L Alkaline Phosphatase 45 (38-126) U/L Total Creatine Kinase 78 (55-170) U/L Troponin I < 0.012 (0.01-0.034) ng/mL Total Protein 8.2 (6.3-8.2) g/dL Albumin 4.8 (3.5-5.0) g/dL Globulin 3.4 (1.7-4.1) g/dL Albumin/Globulin Ratio 1.4 (1.0-2.8) Lipase 66 (23-300) U/L Imaging Data CT scan - head: Radiologist's Impression: PROCEDURE: CT HEAD/BRAIN WO CON INDICATIONS: headache HTN TECHNIQUE: Noncontrast 4.5 mm thick angled axial sections acquired from the foramen magnum to the vertex, with coronal and sagittal reformats. For radiation dose reduction, the following was used: automated exposure control, adjustment of mA and/or kV according to patient size. COMPARISON: None. FINDINGS: Image quality: Diagnostic. CSF spaces: Basal cisterns are patent. No extra-axial fluid collections. The ventricles are symmetric in size and shape. Brain: No acute intracranial hemorrhage or mass effect. There is cerebral volume loss for age, with resultant ventricular and sulcal prominence. There are periventricular and deep white matter chronic small vessel ischemic changes. There is intracranial internal carotid artery atherosclerosis. Skull and face: Calvarium and visualized facial bones appear intact, without suspicious lesions. Sinuses: Visualized sinuses and mastoids are clear. IMPRESSION: No acute intracranial pathology. Approved by: Silvio Kunh M.D. on 09/19/2024 at 10:38 ECG Data Attestation: I personally reviewed and interpreted this ECG as follows: Prior ECG tracings: not available for review Interpretation: Normal sinus rhythm rate 81 MI interval 156 QRS [address] changes Q-wave noted in lead 3 similar to previous EKGs MDM Narrative Medical decision making narrative: MDM CC: Headache for 2 weeks Complicating co-morbidities: Hyperlipidemia gerd Medical records reviewed: To walk-in clinic today the ED PCP note from 12/25/2023 reports blood pressure 159/79, prior to that 164/110 Differential considered: Hypertensive emergency versus urgency, intracranial hemorrhage aneurysm brain mass Exam documented above, pertinent findings include: No neurologic deficits overall 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 Pertinent findings: CBC WBC 10 hemoglobin 15.8 hematocrit 46.3 platelets 301 CMP sodium 137 potassium 4.2 chloride carbon dioxide 21 BUN 11 creatinine 0.5 Troponin negative Independently reviewed EKG as above no ischemia Imaging studies independently reviewed: No acute intracranial abnormality Consultations: Dr. Oneil request losartan to be started Treatments: Toradol, losartan Re-evaluations: Headache is much improved Discussion: Patient 64-year-old male presenting today with ongoing headache and elevated blood pressure. He has been ongoing for about the last 2 weeks. He has no evidence of end-organ damage based on blood work. Blood pressure has improved with Toradol. However he still has a slight headache. I do think that headache and blood pressure are related at this time. Discussed with primary like losartan started will follow-up in clinic. Discharge Plan Departure Patient Disposition: Home Clinical Impression: Hypertension Instructions: Essential Hypertension Activity Restrictions/Additional Instructions: *You have been diagnosed with hypertension *What to do: At this time I do think her headache is related to your blood pressure. Continue to check your blood pressure at daily *Continue to take medications as directed losartan 25mg daily *Follow up with your primary care provider in 2-3 days or call [phone] *Return to ER if you should have increasing headache chest pain, numbness tingling weakness [or] any new, worsening or concerning symptoms Prescriptions: New losartan 25 mg tablet 25 mg PO DAILY Qty: 30 0RF No Action tamsulosin 0.4 mg capsule 0.4 mg PO BEDTIME omega 4-pgw-exk-fish oil [Fish Oil] 1,000 mg (120 mg-180 mg) capsule 2 cap PO DAILY Qty: 100 0RF atorvastatin 10 mg tablet 10 mg PO BEDTIME Qty: 90 6RF aspirin [Adult Aspirin Regimen] 81 mg tablet,delayed release (DR/EC) 81 mg PO DAILY Qty: 90 4RF omeprazole 20 mg capsule,delayed release(DR/EC) 1 cap PO PRN PRN (Reason: Reflux) Referrals: ProviderMaribeth [Primary Care Provider] - Stand Alone Forms: Patient Portal/API/Survey
--- NOTE | 2024-09-19 10:03 | DI.CT.S_ITS ---
PROCEDURE: CT HEAD/BRAIN WO CON INDICATIONS: headache HTN TECHNIQUE: Noncontrast 4.5 mm thick angled axial sections acquired from the foramen magnum to the vertex, with coronal and sagittal reformats. For radiation dose reduction, the following was used: automated exposure control, adjustment of mA and/or kV according to patient size. COMPARISON: None. FINDINGS: Image quality: Diagnostic. CSF spaces: Basal cisterns are patent. No extra-axial fluid collections. The ventricles are symmetric in size and shape. Brain: No acute intracranial hemorrhage or mass effect. There is cerebral volume loss for age, with resultant ventricular and sulcal prominence. There are periventricular and deep white matter chronic small vessel ischemic changes. There is intracranial internal carotid artery atherosclerosis. Skull and face: Calvarium and visualized facial bones appear intact, without suspicious lesions. Sinuses: Visualized sinuses and mastoids are clear. IMPRESSION: No acute intracranial pathology. Approved by: Silvio Kuhn M.D. on 09/19/2024 at 10:38
[2024-09-19 10:17] LABS: Add Manual Diff / Slide Review NO; Basophils Absolute Auto 100 /uL (0-100); Basophils Percent Auto 0.7 % (0-2); Eosinophils Absolute Auto 100 /uL (0-450); Eosinophils Percent Auto 1.2 % (2-4); Hematocrit 46.3 % (41-53); Hemoglobin 15.8 g/dL (13.5-17.5); Lymphocytes Absolute Auto 1800 /uL (1100-4500); Lymphocytes Percent Auto 17.9 % (25-40); Mean Corpuscular HGB Conc 34.1 % (30-36); Mean Corpuscular Hemoglobin 31.9 PG (26-34); Mean Corpuscular Volume 93.5 fL (80-100); Monocytes Absolute Auto 800 /uL (0-900); Monocytes Percent Auto 7.9 % (3-14); Neutrophils Absolute Auto 7200 /uL (1500-7000); Neutrophils Percent Auto 72.3 % (50-75); Platelet Count 301 X10^3/uL (150-400); Red Blood Cell Count 4.95 X10^6/uL (4.5-5.9); Red Cell Distribution Width 13.3 % (11.6-14.8)
[2024-09-19] MEDS: KETOROLAC 30 MG/ML VIAL 15 MG IV (10:28)
--- NOTE | 2024-09-19 10:32 | EKG_ITS ---
[facility] [address] [address] Test Date: 2024-09-19 Pat Name: Luis Villagomez Department: [facility] Room: Gender: Male [employer] Controller: DEV : 1960 Requested By: Order Number: [id number] Reading MD: Andriy Garnica MD Measurements Intervals [place] Rate: 81 P: 32 OR: 156 QRS: 36 QRSD: 84 T: 31 QT: 386 QTc: 448 Interpretive Statements Normal sinus rhythm Electronically Signed On 09-19-2024 15:13:45 PST by Andriy Garnica MD
[2024-09-19 10:39] LABS: Alanine Aminotransferase 35 IU/L (<50); Albumin 4.8 g/dL (3.5-5.0); Albumin Globulin Ratio 1.4 (1.0-2.8); Alkaline Phosphatase 45 U/L (38-126); Aspartate Aminotransferase 38 IU/L (17-59); BUN Creatinine Ratio 18.6 (6-22); Bilirubin Total 1.1 mg/dL (0.2-1.3); Blood Urea Nitrogen 11 mg/dL (9-20); Calcium 9.4 mg/dL (8.4-10.2); Carbon Dioxide 21 mmol/L (22-32); Chloride 105 mmol/L (98-107); Creatine Kinase 78 U/L (55-170); Estimated Glomerular Filt Rate > 60 mL/min (>60); Globulin 3.4 g/dL (1.7-4.1); Glucose 111 mg/dL (80-110); HEMOLYSIS 20 (0-50); Lipase 66 U/L (23-300); Potassium 4.2 mmol/L (3.4-5.1); Sodium 137 mmol/L (137-145); Total Protein 8.2 g/dL (6.3-8.2)
[2024-09-19 10:50] LABS: Troponin I < 0.012 ng/mL (0.01-0.034)
[2024-09-19] MEDS: LOSARTAN 25 MG TABLET PO (11:23)
--- NOTE | 2024-09-19 11:38 | PC.NURSE ---
Headache for a couple weeks. Along with high blood pressure. Pt states he does not know what came first. Pt states he has follow up in 13 days with PCP.
== END 2024-09-19 11:40 | disposition home or self-care (01) ==
PROVIDERS: Emergency Provider Emergency Medicine
DX: I10 Essential (primary) hypertension (principal)
CPT/HCPCS: 36415; 70450; 80053; 82550; 83690; 84484; 85025; 93005; 93010; 96374; 99284; J1885

== ENCOUNTER → 2024-11-12 07:30 | Outpatient (CLI) | payer MEDICARE, OTHER, SELFPAY ==
[2024-11-12 08:47] LABS: Cholesterol 222 mg/dL (140-199); HDL Cholesterol 53 mg/dL (40-60); LDL Cholesterol Calculated 119 mg/dL (<100); Triglycerides 250 mg/dL (35-150)
[2024-11-12 09:17] LABS: TSH w/ Reflex to FT4 3.06 uIU/mL (0.47-4.68)
== END ==
PROVIDERS: PCP Family Medicine; Referring Provider Family Medicine; Visit Provider Family Medicine
DX: E78.5 Hyperlipidemia, unspecified (principal); I10 Essential (primary) hypertension
CPT/HCPCS: 36415; 80061; 84443

== ENCOUNTER → 2025-06-18 07:09 | Outpatient (CLI) | payer MEDICARE, OTHER, SELFPAY ==
[2025-06-18 08:05] LABS: Cholesterol 192 mg/dL (140-199); HDL Cholesterol 50 mg/dL (40-60); Triglycerides 228 mg/dL (35-150)
== END ==
PROVIDERS: PCP Family Medicine; Referring Provider Family Medicine; Visit Provider Family Medicine
DX: E78.5 Hyperlipidemia, unspecified (principal)
CPT/HCPCS: 36415; 80061